=== PATIENT | female | born 1945 | race Caucasian/White ===

== ENCOUNTER 2023-08-19 16:48 | Emergency (ER) | payer MEDICARE, SELFPAY ==
[2023-08-19] VITALS (19 sets, daily range): BP systolic 91–147; BP diastolic 36–82; PULSE 61–73; RESP 16–28; TEMP 35.8; O2SAT 96–99; BMI 38.7
--- NOTE | 2023-08-19 17:11 | DI.RAD.S_ITS ---
PROCEDURE: XR CHEST 1V INDICATIONS: Shortness of breath TECHNIQUE: One view of the chest was acquired. COMPARISON: None. FINDINGS: Surgical changes and devices: None. Lungs and pleura: Right upper lobe pulmonary infiltrate with elevated right hemidiaphragm. Left lung and pleural space clear Mediastinum: Mediastinal contours appear normal. Heart size is normal. Bones and chest wall: No suspicious bony lesions. Overlying soft tissues appear unremarkable. IMPRESSION: Right upper lobe pulmonary infiltrate consistent with pneumonia Approved by: Delmer Toth M.D. on 08/19/2023 at 17:24
--- NOTE | 2023-08-19 17:23 | PC.NURSE ---
Addendum entered by Marly Hamilton R.N. 08/19/23 17:26: Pt also reports diarrhea and decreased voiding of urine. Last void was noon. Pt denies chest pain, denies unilateral weakness. Original Note: Pt has bilateral numbness and tingling to her arms. She has twitching of her left eye and spasms in her left hand. Pt reports this is all new. Reports SOB began this morning while trying to talk to her sister. She reports recent illness. Pt reports I just don't feel right and reports being scared. Explained care and to call if anything changes. Call light within reach.
[2023-08-19 17:44] LABS: INR 1.1 (0.9-1.3)
[2023-08-19 17:46] LABS: Alanine Aminotransferase 28 IU/L (<35); Albumin 4.3 g/dL (3.5-5.0); Albumin Globulin Ratio 1.1 (1.0-2.8); Alkaline Phosphatase 122 U/L (38-126); Aspartate Aminotransferase 31 IU/L (14-36); BUN Creatinine Ratio 19.4 (6-22); Blood Urea Nitrogen 14 mg/dL (7-17); Calcium 9.3 mg/dL (8.4-10.2); Carbon Dioxide 29 mmol/L (22-32); Chloride 100 mmol/L (98-107); Estimated Glomerular Filt Rate > 60 mL/min (>60); Globulin 3.9 g/dL (1.7-4.1); Glucose 99 mg/dL (80-110); HEMOLYSIS < 15 (0-50); Magnesium 1.8 mg/dL (1.6-2.3); Sodium 139 mmol/L (137-145); Total Protein 8.2 g/dL (6.3-8.2)
[2023-08-19 17:49] LABS: Lactate (Lactic Acid) 1.6 mmol/L (0.7-2.1)
[2023-08-19 17:55] LABS: NT-proBNP (BNP-Adult 18+) 82 pg/mL (<450)
[2023-08-19 17:58] LABS: Potassium 2.6 mmol/L (3.4-5.1)
[2023-08-19 17:59] LABS: Troponin I < 0.012 ng/mL (0.01-0.034)
[2023-08-19 18:09] LABS: Add Manual Diff / Slide Review YES; Hematocrit 42.3 % (36-46); Hemoglobin 14.5 g/dL (12.0-16.0); Mean Corpuscular HGB Conc 34.4 % (30-36); Mean Corpuscular Hemoglobin 29.5 PG (26-34); Mean Corpuscular Volume 85.7 fL (80-100); Platelet Count 451 X10^3/uL (150-400); Red Blood Cell Count 4.94 X10^6/uL (4.0-5.2); Red Cell Distribution Width 13.5 % (11.6-14.8); White Blood Cell Count 7.1 X10^3/uL (4.5-11.0)
--- NOTE | 2023-08-19 18:16 | ED_ITS ---
HPI - General Adult General Chief complaint: Shortness of Breath/Dyspnea Stated complaint: SOB, Wheezing, Time Seen by Provider: 08/19/23 17:58 Source: patient Mode of arrival: Ambulatory History of Present Illness HPI narrative: Patient is a 78-year-old female who is here for evaluation of shortness of breath and wheezing an extreme fatigue. She states that she recently traveled from [place] to the local area. She thought maybe she got sick while she was down there visiting. She had cough and shortness of breath and fatigue but then those symptoms were improving until yesterday when things got significantly worse. She was more short of breath today. She is extremely fatigued. Chest pain because of the cough. No lower extremity swelling. No abdominal pain or nausea or vomiting. Related Data Previous Rx's Medication Instructions Recorded azithromycin 250 mg tablet 250 mg PO DAILY 4 days #4 tabs 08/19/23 oseltamivir 75 mg capsule (Tamiflu) 75 mg PO DAILY 4 days #4 caps 08/19/23 Allergies Allergy/AdvReac Type Severity Reaction Status Date / Time No Known Drug Allergies Allergy Verified 08/19/23 16:58 Review of Systems Review of Systems ROS Unobtainable: All systems reviewed & are unremarkable except as noted in HPI and below Patient History Social History Smoking Status: Never smoker Smoking Status: Never smoker alcohol intake frequency: 0-2 drinks per day Alcohol type: wine Substance Use Type: marijuana Exam Initial Vital Signs Initial Vital Signs: Vital Signs Temperature 96.5 F L 08/19/23 16:58 Pulse Rate 65 08/19/23 16:58 Respiratory Rate 18 08/19/23 16:58 Blood Pressure 130/68 08/19/23 16:58 Pulse Oximetry 98 08/19/23 16:58 Oxygen Delivery Method Room Air 08/19/23 16:58 Const General: cooperative, comfortable and No ill appearing HENMT Head: normal to inspection and normocephalic Resp Effort & Inspection: cough and tachypneic Auscultation: clear to auscultation bilaterally Cardio Rate: regular rate Rhythm: regular rhythm GI Inspection: normal to inspection and non-distended Palpation: soft and No tender Skin General: no rashes or lesions noted Neuro General: patient alert, patient awake, patient oriented x3 and moves all extremities Speech: speech normal Extrem General: normal to inspection and capillary refill normal Scores GCS Mirela coma scale eye opening: Spontaneous [place] coma scale verbal response: Orientated Mirela coma scale motor response: Obey commands Mirela coma scale total score: 15 Course Orders Ordered: ED Orders 08/19/23 18:27 Respiratory Panel (Film Array) Stat 08/19/23 18:40 CT angio chest PE protocol Stat Discontinued Medications Albuterol/Ipratropium (Albuterol/Ipratropium 3 Ml Ampul) 3 ml INH [id number] PRN PRN Reason: Shortness Of Breath Last Admin: 08/19/23 18:19 Dose: 3 ml Documented By: OLIVIER Azithromycin (Azithromycin 250 Mg Tablet) 500 mg PO NOW ONE Stop: 08/19/23 20:20 Last Admin: 08/19/23 20:55 Dose: 500 mg Documented By: POTASSIUM CHLORIDE IN WATER (Potassium Cl 10 Meq/100 Ml Mery) 10 meq in 100 mls @ 100 mls/hr IV Q1H GUILLERMINA Stop: 08/19/23 20:14 Last Infusion: 08/19/23 22:25 Dose: Infused Documented By: Infusion: 08/19/23 21:52 Dose: 100 mls/hr Documented By: Admin: 08/19/23 20:05 Dose: 25 mls/hr Documented By: Infusion: 08/19/23 20:01 Dose: Infused Documented By: Admin: 08/19/23 18:31 Dose: 100 mls/hr Documented By: ELBA Oseltamivir Phosphate (Oseltamivir 75 Mg Capsule) 75 mg PO NOW ONE Stop: 08/19/23 20:20 Last Admin: 08/19/23 20:55 Dose: 75 mg Documented By: Potassium Chloride (Potassium Chloride 20 Meq Tab) 40 meq PO NOW ONE Stop: 08/19/23 18:10 Last Admin: 08/19/23 18:22 Dose: 40 meq Documented By: ELBA Vital Signs Vital signs: Vital Signs - 8 hr 08/19/23 19:33 08/19/23 19:33 08/19/23 20:00 Pulse Rate 67 67 Respiratory Rate 18 23 Blood Pressure 128/68 Pulse Oximetry 98 99 Oxygen Delivery Method 08/19/23 20:01 08/19/23 20:01 08/19/23 20:30 Pulse Rate 67 69 Respiratory Rate 23 20 Blood Pressure 129/62 Pulse Oximetry 98 98 Oxygen Delivery Method 08/19/23 20:31 08/19/23 20:31 08/19/23 20:47 Pulse Rate 72 Respiratory Rate 18 Blood Pressure 91/36 L 126/59 L Pulse Oximetry 97 Oxygen Delivery Method 08/19/23 20:47 08/19/23 21:00 08/19/23 21:00 Pulse Rate 70 66 Respiratory Rate 18 21 Blood Pressure 112/53 L Pulse Oximetry 98 Oxygen Delivery Method 08/19/23 21:30 08/19/23 21:30 08/19/23 22:00 Pulse Rate 69 Respiratory Rate 23 Blood Pressure 112/61 105/57 L Pulse Oximetry 98 Oxygen Delivery Method 08/19/23 22:00 Pulse Rate 73 Respiratory Rate 21 Blood Pressure Pulse Oximetry 96 Oxygen Delivery Method Room Air Medical Decision Making Lab Data Lab results reviewed: Yes I reviewed the patient's lab results. 08/19/23 17:15 08/19/23 17:15 Labs: Lab Results 08/19/23 08/19/23 Range/Units 17:15 18:27 WBC 7.1 (4.5-11.0) X10^3/uL RBC 4.94 (4.0-5.2) X10^6/uL Hgb 14.5 (12.0-16.0) g/dL Hct 42.3 (36-46) % MCV 85.7 (80-100) fL MCH 29.5 (26-34) PG MCHC 34.4 (30-36) % RDW 13.5 (11.6-14.8) % Plt Count 451 H (150-400) X10^3/uL Neut % (Auto) Not Reportable Lymph % (Auto) Not Reportable [place] % (Auto) Not Reportable Eos % (Auto) Not Reportable Baso % (Auto) Not Reportable Lymph # (Auto) Not Reportable [place] # (Auto) Not Reportable Baso # (Auto) Not Reportable Total Counted 100 Seg Neutrophils % 64.0 (38-70) % Band Neutrophils % 1.0 L (3-7) % Lymphocytes % (Manual) 10.0 L (25-45) % Atypical Lymphs % 9.0 H ( - 0) % Monocytes % (Manual) 13.0 H (2-11) % Eosinophils % (Manual) 2.0 (2-4) % Basophils % (Manual) 1.0 (0-1) % Neutrophils # (Manual) 4615 (2750-8249) /uL Smudge Cells 1+ H RBC Morphology Normal morphology PT 13.0 H (9.4-12.5) SECONDS INR 1.1 (0.9-1.3) D-Dimer 922 H (<500) ng/ml Sodium 139 (137-145) mmol/L Potassium 2.6 L* (3.4-5.1) mmol/L Chloride 100 (98-107) mmol/L Carbon Dioxide 29 (22-32) mmol/L BUN 14 (7-17) mg/dL Creatinine 0.72 (0.52-1.04) mg/dL Estimated GFR > 60 (>60) mL/min BUN/Creatinine Ratio 19.4 (6-22) Glucose 99 (80-110) mg/dL Lactate 1.6 (0.7-2.1) mmol/L Calcium 9.3 (8.4-10.2) mg/dL Magnesium 1.8 (1.6-2.3) mg/dL Total Bilirubin 1.0 (0.2-1.3) mg/dL AST 31 (14-36) IU/L ALT 28 (<35) IU/L Alkaline Phosphatase 122 (38-126) U/L Troponin I < 0.012 (0.01-0.034) ng/mL NT-Pro-B Natriuret Pep 82 (<450) pg/mL Total Protein 8.2 (6.3-8.2) g/dL Albumin 4.3 (3.5-5.0) g/dL Globulin 3.9 (1.7-4.1) g/dL Albumin/Globulin Ratio 1.1 (1.0-2.8) Chlamy pneumoniae PCR Not detected (Not Detect) Adenovirus (PCR) Not detected (Not Detect) B.parapertussis DNA PCR Not detected (Not Detecte) Coronavirus OC43 (PCR) Not detected (Not Detect) Coronavirus HKU1 (PCR) Not detected (Not Detect) Coronavirus 229E (PCR) Not detected (Not Detect) SARS-CoV-2 (PCR) Not detected (Not Detecte) Coronavirus NL63 (PCR) Not detected (Not Detect) Human Metapneumovir PCR Not detected (Not Detect) Influ A (H1N1 Seas) PCR Detected H (Not Detect) Influenza Type B (PCR) Not detected (Not Detect) M. pneumoniae (PCR) Not detected (Not Detect) Parainfluenza 1 (PCR) Not detected (Not Detect) Parainfluenza 2 (PCR) Not detected (Not Detect) Parainfluenza 3 (PCR) Not detected (Not Detect) Parainfluenza 4 (PCR) Not detected (Not Detect) RSV (PCR) Not detected (Not Detect) Entero/Rhino (PCR) Not detected (Not Detect) Imaging Data Chest x-ray: Radiologist's Impression: PROCEDURE: XR CHEST 1V INDICATIONS: Shortness of breath TECHNIQUE: One view of the chest was acquired. COMPARISON: None. FINDINGS: Surgical changes and devices: None. Lungs and pleura: Right upper lobe pulmonary infiltrate with elevated right hemidiaphragm. Left lung and pleural space clear Mediastinum: Mediastinal contours appear normal. Heart size is normal. Bones and chest wall: No suspicious bony lesions. Overlying soft tissues appear unremarkable. IMPRESSION: Right upper lobe pulmonary infiltrate consistent with pneumonia CT scan - chest: Radiologist's Impression: PROCEDURE: CT ANGIO CHEST PE PROTOCOL INDICATIONS: Chest pain, shortness of breath, tachycardia TECHNIQUE: After the administration of intravenous contrast, 2 mm thick sections acquired from the pulmonary apices to the posterior costophrenic angles. 3-dimensional maximum intensity projection (MIP) coronal and sagittal reformats were then acquired through the thorax. For radiation dose reduction, the following was used: automated exposure control, adjustment of mA and/or kV according to patient size. COMPARISON: [facility], , XR CHEST 1V, 08/19/2023, 17:12. FINDINGS: Image quality: Mild motion artifact Lungs and pleura: Right upper lobe [id number] consolidation. There is central are nodules, also involving the right lower lobe. No drainable pleural effusions. Mediastinum, heart, and esophagus: No acute pulmonary embolism. The distal arteries are mildly obscured by motion. Possible small hiatal hernia. Right hemidiaphragm eventration. Prominent mediastinal lymph nodes are indeterminate, possibly reactive in this clinical setting. Chest wall and thyroid: Thyroid is not well seen. Chest wall is unremarkable. Upper abdomen: No gross abnormality on these arterial phase images. Bones: Degenerative changes, no acute or suspicious findings. IMPRESSION: No acute pulmonary embolism. Presumed right upper lobe pneumonia, and likely infectious/inflammatory right lung nodules are present. Consider future imaging surveillance to assess for resolution. No drainable pleural effusion. Other findings above. Motion degraded CT. ECG Data Attestation: I personally reviewed and interpreted this ECG as follows: Interpretation: Sinus rhythm with occasional PVCs Ventricular rate is 60 Normal axis Normal QRS Nonspecific ST T wave changes MDM Narrative Medical decision making narrative: Patient is influenza positive. This does explain the symptoms that she arrives in the emergency department today. She also has a focal pneumonia on the chest x-ray. This potentially could be an influenza pneumonia however I would expect that to be more bilateral and patchy infiltrates rather than focal like this. Given that she had symptoms that were somewhat improving and then worsened yesterday I would be somewhat concerned that there is a superimposed bacterial pneumonia on top of the influenza. Because of this will treat with Tamiflu because if this is a focal influenza pneumonia Tamiflu maybe helpful for prevention of worsening symptoms. Will also treat with antibiotics. Patient understands that antibiotics does not treat influenza but if this is a focal bacterial pneumonia it would be covered as well. There was no indication for admission to the hospital. She was hypokalemic. Replenishment provided here in the ER. The CT scan was ordered because of an elevated D-dimer. That was ordered because of her recent travel and the sudden onset of symptoms yesterday. Patient was given return precautions and follow-up instructions. She expressed understanding and agreement. Discharge Plan Departure Patient Disposition: Home Clinical Impression: Influenza A, Pneumonia, Hypokalemia Instructions: DI for Pneumonia -- Adult, DI for Influenza -- Adult Activity Restrictions/Additional Instructions: The next dose of both of your medications will be tomorrow 08/20/2023. Please take them as directed. You can take Tylenol/ibuprofen for fevers or discomfort. Return to the emergency department for new symptoms. Prescriptions: New azithromycin 250 mg tablet 250 mg PO DAILY 4 Days Qty: 4 0RF oseltamivir [Tamiflu] 75 mg capsule 75 mg PO DAILY 4 Days Qty: 4 0RF Referrals: Miscellaneous,Doctor, [Primary Care Provider] - Stand Alone Forms: Patient Portal/API
[2023-08-19] MEDS: ALBUTEROL/IPRATROPIUM 3 ML AMPUL INH (18:19)
[2023-08-19] MEDS: POTASSIUM CHLORIDE 20 MEQ TAB 40 MEQ PO (18:22)
[2023-08-19 18:25] LABS: D Dimer 922 ng/ml (<500)
[2023-08-19] MEDS: POTASSIUM CHLORIDE IN WATER 10 MEQ/100 ML PIGGYBACK 100 MEQ IV (18:31)
--- NOTE | 2023-08-19 18:40 | DI.CT.S_ITS ---
PROCEDURE: CT ANGIO CHEST PE PROTOCOL INDICATIONS: Chest pain, shortness of breath, tachycardia TECHNIQUE: After the administration of intravenous contrast, 2 mm thick sections acquired from the pulmonary apices to the posterior costophrenic angles. 3-dimensional maximum intensity projection (MIP) coronal and sagittal reformats were then acquired through the thorax. For radiation dose reduction, the following was used: automated exposure control, adjustment of mA and/or kV according to patient size. COMPARISON: [facility], CR, XR CHEST 1V, 08/19/2023, 17:12. FINDINGS: Image quality: Mild motion artifact Lungs and pleura: Right upper lobe [id number] consolidation. There is central are nodules, also involving the right lower lobe. No drainable pleural effusions. Mediastinum, heart, and esophagus: No acute pulmonary embolism. The distal arteries are mildly obscured by motion. Possible small hiatal hernia. Right hemidiaphragm eventration. Prominent mediastinal lymph nodes are indeterminate, possibly reactive in this clinical setting. Chest wall and thyroid: Thyroid is not well seen. Chest wall is unremarkable. Upper abdomen: No gross abnormality on these arterial phase images. Bones: Degenerative changes, no acute or suspicious findings. IMPRESSION: No acute pulmonary embolism. Presumed right upper lobe pneumonia, and likely infectious/inflammatory right lung nodules are present. Consider future imaging surveillance to assess for resolution. No drainable pleural effusion. Other findings above. Motion degraded CT. Dictated by: Romaine Villanueva M.D. on 08/19/2023 at 19:53 Approved by: Romaine Villanueva M.D. on 08/19/2023 at 19:57
[2023-08-19 19:16] LABS: Neutrophils Absolute Manual 4615 /uL (3000-5900); Total Cells Counted 100
[2023-08-19 19:17] LABS: RBC Morphology Normal Morphology; Smudge Cells 1+
[2023-08-19 19:37] LABS: Adenovirus Not Detected (Not Detect); B. parapertussis Not Detected (Not Detecte); Bordetella pertussis Not Detected (Not Detect); Chlamydophila pneumoniae Not Detected (Not Detect); Coronavirus 229E Not Detected (Not Detect); Coronavirus HKU1 Not Detected (Not Detect); Coronavirus NL 63 Not Detected (Not Detect); Coronavirus OC43 Not Detected (Not Detect); Human Metapneumovirus Not Detected (Not Detect); Human Rhinovirus/Enterovirus Not Detected (Not Detect); Influenza A H1-2009 Detected (Not Detect); Influenza B Not Detected (Not Detect); Mycoplasma pneumoniae Not Detected (Not Detect); Parainfluenza Virus 1 Not Detected (Not Detect); Parainfluenza Virus 2 Not Detected (Not Detect); Parainfluenza Virus 3 Not Detected (Not Detect); Parainfluenza Virus 4 Not Detected (Not Detect); Respiratory Syncytial Virus Not Detected (Not Detect); SARS- CoV-2 Not Detected (Not Detecte)
[2023-08-19] MEDS: POTASSIUM CHLORIDE IN WATER 10 MEQ/100 ML PIGGYBACK 25 MEQ IV (20:05)
[2023-08-19] MEDS: AZITHROMYCIN 250 MG TABLET 500 MG PO (20:55)
[2023-08-19] MEDS: OSELTAMIVIR 75 MG CAPSULE PO (20:55)
== END 2023-08-19 22:32 | disposition home or self-care (01) ==
PROVIDERS: Emergency Medicine; Emergency Provider Emergency Medicine
DX: J18.9 Pneumonia, unspecified organism (principal); J10.1 Influenza due to other identified influenza virus with other respiratory manifestations; E87.6 Hypokalemia; R07.89 Other chest pain; R00.0 Tachycardia, unspecified; Z20.822 Contact with and (suspected) exposure to COVID-19
CPT/HCPCS: 36415; 71045; 71275; 80053; 83605; 83735; 83880; 84484; 85007; 85025; 85379; 85610; 87633; 93005; 93010; 94640; 96365; 96366; 99284; Q9967